=== PATIENT | female | born 1955 | race Caucasian/White ===

== ENCOUNTER 2016-09-24 18:16 | Emergency (ER) | payer MEDICAID ==
[~2016-09-24] VITALS: Ht 160 cm; Wt 52.0 kg
[~2016-09-24 18:16] MED LIST: CARI350T; HYDR-519; LAMICTAL; ZESTRIL
[2016-09-24 18:35] VITALS: BP 117/70
== END 2016-09-24 21:51 | disposition left against medical advice (07) ==
LOC: ER 18:58
DX: Z53.21 Procedure and treatment not carried out due to patient leaving prior to being seen by health care provider (principal)
CPT/HCPCS: 94640

== ENCOUNTER 2016-09-24 22:17 | Emergency (ER) | payer MEDICAID ==
[2016-09-25 01:33] VITALS: BP 106/51
[2016-09-25] MEDS ORDERED: IPRATROPIUM/ALBUTEROL 0.5-3(2.5)MG/3ML NEB HHN ONE (03:00)
[2016-09-25] MEDS ORDERED: DOXYCYCLINE HYCLATE 100MG CAPSULE PO ONE (03:00)
== END 2016-09-25 03:42 | disposition home or self-care (01) ==
LOC: ER 22:19
DX: J18.9 Pneumonia, unspecified organism (principal); I10 Essential (primary) hypertension; F17.210 Nicotine dependence, cigarettes, uncomplicated; Z88.8 Allergy status to other drugs, medicaments and biological substances
CPT/HCPCS: 71010; 99283; J7620